=== PATIENT | female | born 1955 | race Two or more races ===

== ENCOUNTER 2024-10-08 15:46 | Inpatient (IN) | payer OTHER ==
[~2024-10-08] VITALS: Ht 167.6 cm; Wt 59.0 kg
--- NOTE | 2024-10-08 16:28 | NUR ---
PACIENTE ALERTA Y ORIENTADA X3 LA MISMA REFIERE QUE SE HISO UN ESTUDIO Y LA ENVIARON PARA ZOEY POR QUE SALIO CON EL INTESTINO PERFORADO SHARMA DR.JOSE JOSEPH. S/V ESTABLE AL MOMENTO.PACIENTE EN TRACIE CON BARANDAS ELEVADAS EN ESPERA DE EVALUACION MEDICA.
[2024-10-08] MEDS ORDERED: ELIQUIS2.5 MG (16:33)
[2024-10-08] MEDS ORDERED: TENORMIN25 MG (16:33)
[2024-10-08] MEDS ORDERED: HUMIRA40 MG/0.2 (16:33)
[2024-10-08] MEDS ORDERED: SYNTHROID100 MCG (16:33)
[2024-10-08] MEDS ORDERED: SIMVASTATIN5 MG (16:34)
[2024-10-08] MEDS ORDERED: 0.9 % SODIUM CHLORIDE 1,000 ML IV STA (17:37)
--- NOTE | 2024-10-08 17:37 | NUR ---
SE NOTIFICA CT PENDIENTE.
--- NOTE | 2024-10-08 18:21 | NUR ---
PTE EVELAUADA POR EL DR. LALA. SE OIENTA SOBRE TRATAMIENTO, VERBALIZA ENTENDER. SE COLECTAN MUESTRAS DE LAB SOREN ORDEN MEDICA BAJO MEDIDAS ASEPTICAS. PTE REHUSA CANALIZACION Y COLOCAR IVFLUID.
[2024-10-08 18:30] LABS: BASO % 0.6 % (0.1-1.2); EOS # 0.11 (0.04-0.54); EOS % 1.8 % (0.7-7.0); HEMATOCRIT 35.9 % (34.1-44.9); LYMPH # 1.96 (1.18-3.74); LYMPH % 31.7 % (19.3-53.1); MEAN CORPUSCULAR HEMOGLOBIN 32.3 pg (25.6-32.2); MONO # 0.67 (0.24-0.82); MONO % 10.8 % (4.7-12.5); NEUT # 3.38 (1.56-6.13); NEUT % 54.8 % (34.0-71.1); PLATELET COUNT 211 K/uL (163-369); RED BLOOD COUNT 3.71 M/uL (3.93-5.22); RED CELL DISTRIBUTION WIDTH 13.4 % (11.6-14.4)
[2024-10-08 18:38] LABS: INR 1.11; PARTIAL THROMBOPLASTIN TIME 34.7 SECONDS (22.0-34.0)
[2024-10-08 18:42] LABS: ALBUMIN 3.7 gm/dL (3.4-5.0); BILIRUBIN TOTAL 0.31 mg/dL (0.3-1.2); CALCIUM 9.4 mg/dL (8.5-10.1); CREATININE SERUM 0.97 mg/dL (0.55-1.02); GFR 56.77; POTASSIUM 4.1 mEq/L (3.5-5.1); TOTAL PROTEIN 7.7 gm/dL (6.4-8.2)
[2024-10-08] MEDS ORDERED: PIPERACILLIN/TAZOBACTAM SODIUM 3.375 GM in DEXTROSE 5 % IN WATER 100 ML IV SCH (19:07)
[2024-10-08] MEDS ORDERED: PANTOPRAZOLE SODIUM 40 MG/VIAL VIAL IV SCH (19:13)
[2024-10-08] MEDS ORDERED: 0.9 % SODIUM CHLORIDE 1,000 ML IV SCH (19:15)
[2024-10-08] MEDS ORDERED: ENALAPRILAT DIHYDRATE 1.25 MG/ML VIAL IV PRN (19:15)
[2024-10-08] MEDS ORDERED: MORPHINE SULFATE 2 MG/ML CARTRIDGE IV PRN (19:15)
[2024-10-08] MEDS ORDERED: ONDANSETRON HCL 4 MG in 0.9 % SODIUM CHLORIDE 50 ML IV PRN (19:15)
[2024-10-08] MEDS ORDERED: PIPERACILLIN/TAZOBACTAM SODIUM 3.375 GM VIAL IV ONE (19:48)
[2024-10-08 19:58] LABS: PH,URINE 6.5 (5.0-8.0); URINE APPEARANCE Clear; URINE BILIRRUBIN Negative (NEGATIVE); URINE BLOOD Trace; URINE COLOR Yellow; URINE GLUCOSE Negative (NEGATIVE); URINE KETONE Negative (NEGATIVE); URINE LEUKOCYTE Small; URINE NITRATE Negative; URINE PROTEIN Negative (NEGATIVE); URINE UROBILINOGEN 0.2 E.U./dl
[2024-10-08 20:02] LABS: URINE BACTERIA 7273.5 uL (0.0-1933); URINE RBC 13.1 uL (0.0-20.8); URINE WBC 16.5 uL (0.0-23.2)
[2024-10-08 20:04] LABS: URINE EPITHELIAL CELLS 0.9 uL (0.0-38.8)
[2024-10-08 22:34] VITALS: BP 104/62; O2SAT 96
[2024-10-08 22:40] VITALS: BP 104/62
[2024-10-09 05:04] VITALS: BP 100/57; O2SAT 98
[2024-10-09 08:54] VITALS: BP 107/67; O2SAT 100
[2024-10-09] MEDS ORDERED: PANTOPRAZOLE SODIUM 80 MG in 0.9 % SODIUM CHLORIDE 100 ML IV SCH (12:45)
[2024-10-09 16:00] VITALS: BP 101/60; O2SAT 100
[2024-10-09] MEDS ORDERED: VANCOMYCIN HCL 1,000 MG VIAL ONE (20:19)
[2024-10-09] MEDS ORDERED: VANCOMYCIN HCL 1,000 MG VIAL IV SCH (21:00)
[2024-10-10 01:07] VITALS: BP 94/48; O2SAT 98
[2024-10-10 07:22] LABS: BASO % 0.9 % (0.1-1.2); EOS # 0.12 (0.04-0.54); EOS % 2.2 % (0.7-7.0); HEMATOCRIT 33.5 % (34.1-44.9); LYMPH # 1.29 (1.18-3.74); MEAN CORPUSCULAR HEMOGLOBIN 32.7 pg (25.6-32.2); MONO # 0.62 (0.24-0.82); MONO % 11.5 % (4.7-12.5); NEUT # 3.28 (1.56-6.13); PLATELET COUNT 177 K/uL (163-369); RED BLOOD COUNT 3.36 M/uL (3.93-5.22); RED CELL DISTRIBUTION WIDTH 13.7 % (11.6-14.4)
[2024-10-10 08:00] VITALS: BP 99/60; O2SAT 96
[2024-10-10 08:21] LABS: ALBUMIN 2.8 gm/dL (3.4-5.0); BILIRUBIN TOTAL 0.74 mg/dL (0.3-1.2); CALCIUM 7.9 mg/dL (8.5-10.1); CREATININE SERUM 0.86 mg/dL (0.55-1.02); GFR 65.23; GLOBULINA 2.9 G/DL (2.4-3.5); MAGNESIUM 1.6 mg/dL (1.8-2.4); PHOSPHOROUS 3.8 mg/dL (2.5-4.9); POTASSIUM 3.74 mEq/L (3.5-5.1); TOTAL PROTEIN 5.7 gm/dL (6.4-8.2)
[2024-10-10 08:22] LABS: C-REACTIVE PROTEIN 0.64 MG/DL (0.00-0.29)
[2024-10-10] MEDS ORDERED: DIATRIZOATE MEGLUMINE, SODIUM 30 ML BOTTLE PO NR (09:00)
[2024-10-10] MEDS ORDERED: MAGNESIUM SULFATE IN WATER 50 ML IV NR (10:15)
[2024-10-10 16:50] VITALS: BP 103/64; O2SAT 95
[2024-10-11 02:00] VITALS: BP 99/59; O2SAT 99
[2024-10-11] MEDS ORDERED: DEXTROSE 50 % IN WATER 0.5 G/ML VIAL IV PRN (07:00)
[2024-10-11] MEDS ORDERED: DEXTROSE 5 % AND 0.9 % NACL 1,000 ML IV SCH (07:00)
[2024-10-11 08:00] VITALS: BP 118/60; O2SAT 100
[2024-10-11 08:21] LABS: BILIRUBIN TOTAL 0.75 mg/dL (0.3-1.2); BILIRUBIN,CONJUGATED 0.21 mg/dL (0.0-0.2); BILIRUBIN,UNCONJUGATED 0.54 mg/dL (0.0-0.6); CALCIUM 8.1 mg/dL (8.5-10.1); CREATININE SERUM 0.98 mg/dL (0.55-1.02); GFR 56.1; MAGNESIUM 1.8 mg/dL (1.8-2.4); POTASSIUM 4.06 mEq/L (3.5-5.1); TOTAL PROTEIN 6.1 gm/dL (6.4-8.2)
[2024-10-11 08:36] LABS: C-REACTIVE PROTEIN 1.31 MG/DL (0.00-0.29)
[2024-10-11] MEDS ORDERED: ENOXAPARIN SODIUM 40 MG/0.4 ML SYRINGE SUBCUTANEO SCH (09:00)
[2024-10-11] MEDS ORDERED: LEVOTHYROXINE SODIUM 100 MCG/VIAL VIAL IV SCH (12:00)
[2024-10-11] MEDS ORDERED: AMINO ACIDS 4.25 %/DEXTROSE 5% 1,000 ML PERIFERAL SCH (17:00)
[2024-10-11 17:10] VITALS: BP 102/62; O2SAT 98
[2024-10-11 17:40] LABS: CHOL HDL RATIO 2.7 (0-5.0)
[2024-10-12 01:48] VITALS: BP 108/62; O2SAT 97
[2024-10-12 08:00] VITALS: BP 122/72; O2SAT 99
[2024-10-12 16:00] VITALS: BP 117/67; O2SAT 99
[2024-10-13 01:35] VITALS: BP 100/54; O2SAT 98
[2024-10-13 07:11] LABS: BASO % 1.3 % (0.1-1.2); EOS # 0.27 (0.04-0.54); HEMATOCRIT 33.5 % (34.1-44.9); HEMOGLOBIN 11.2 g/dL (11.2-15.7); LYMPH # 1.64 (1.18-3.74); LYMPH % 36.4 % (19.3-53.1); MEAN CORPUSCULAR HEMOGLOBIN 32.6 pg (25.6-32.2); NEUT # 1.73 (1.56-6.13); NEUT % 38.4 % (34.0-71.1); PLATELET COUNT 173 K/uL (163-369); RED BLOOD COUNT 3.44 M/uL (3.93-5.22); RED CELL DISTRIBUTION WIDTH 13.6 % (11.6-14.4)
[2024-10-13 07:17] LABS: INR 1.15; PARTIAL THROMBOPLASTIN TIME 31.3 SECONDS (22.0-34.0); PROTHROMBIN TIME 12.4 SECONDS (9.0-11.5)
[2024-10-13 07:22] LABS: MONO % 17.7 % (4.7-12.5)
[2024-10-13 07:52] LABS: ALBUMIN 2.7 gm/dL (3.4-5.0); BILIRUBIN TOTAL 0.66 mg/dL (0.3-1.2); BILIRUBIN,CONJUGATED 0.18 mg/dL (0.0-0.2); BILIRUBIN,UNCONJUGATED 0.48 mg/dL (0.0-0.6); CHOL HDL RATIO 2.7 (0-5.0); CREATININE SERUM 0.84 mg/dL (0.55-1.02); GFR 67.03; GLOBULINA 2.8 G/DL (2.4-3.5); MAGNESIUM 1.5 mg/dL (1.8-2.4); POTASSIUM 3.97 mEq/L (3.5-5.1); TOTAL PROTEIN 5.5 gm/dL (6.4-8.2)
[2024-10-13 08:00] VITALS: BP 99/55; O2SAT 95
[2024-10-13 12:18] LABS: UREA CLEARANCE 26.4 ML/MIN
[2024-10-13] MEDS ORDERED: PANTOPRAZOLE SODIUM 40 MG TABLET.DR PO SCH (21:00)
[2024-10-13] MEDS ORDERED: VANCOMYCIN HCL 1,000 MG VIAL ONE (21:15)
[2024-10-14 00:05] VITALS: BP 109/68; O2SAT 99
[2024-10-14] MEDS ORDERED: LEVOTHYROXINE SODIUM 100 MCG TABLET PO SCH (06:00)
[2024-10-14 08:00] VITALS: BP 112/60; O2SAT 95
[2024-10-14] MEDS ORDERED: MAGNESIUM SULFATE IN WATER 50 ML IV NR (11:00)
[2024-10-14 16:00] VITALS: BP 123/68; O2SAT 100
[2024-10-15 01:01] VITALS: BP 120/79; O2SAT 100
[2024-10-15 07:36] LABS: BASO % 1.4 % (0.1-1.2); EOS # 0.32 (0.04-0.54); EOS % 7.5 % (0.7-7.0); HEMATOCRIT 32.8 % (34.1-44.9); HEMOGLOBIN 10.8 g/dL (11.2-15.7); LYMPH # 1.82 (1.18-3.74); LYMPH % 42.9 % (19.3-53.1); MEAN CORPUSCULAR HEMOGLOBIN 31.7 pg (25.6-32.2); MONO # 0.62 (0.24-0.82); NEUT # 1.42 (1.56-6.13); NEUT % 33.6 % (34.0-71.1); PLATELET COUNT 175 K/uL (163-369); RED BLOOD COUNT 3.41 M/uL (3.93-5.22); RED CELL DISTRIBUTION WIDTH 13.6 % (11.6-14.4)
[2024-10-15 07:46] LABS: MONO % 14.6 % (4.7-12.5)
[2024-10-15 08:11] LABS: ALBUMIN 2.8 gm/dL (3.4-5.0); BILIRUBIN TOTAL 0.52 mg/dL (0.3-1.2); CALCIUM 8.3 mg/dL (8.5-10.1); CREATININE SERUM 0.86 mg/dL (0.55-1.02); GFR 65.23; GLOBULINA 2.9 G/DL (2.4-3.5); MAGNESIUM 1.6 mg/dL (1.8-2.4); PHOSPHOROUS 2.6 mg/dL (2.5-4.9); POTASSIUM 3.42 mEq/L (3.5-5.1); TOTAL PROTEIN 5.7 gm/dL (6.4-8.2)
[2024-10-15 08:46] VITALS: BP 120/66; O2SAT 100
[2024-10-15] MEDS ORDERED: PANTOPRAZOLE SODIUM 40 MG/VIAL VIAL IV SCH (09:00)
[2024-10-15] MEDS ORDERED: DIATRIZOATE MEGLUMINE, SODIUM 30 ML BOTTLE PO NR (11:00)
[2024-10-15 16:00] VITALS: BP 106/62; O2SAT 100
[2024-10-15] MEDS ORDERED: MAGNESIUM SULFATE 2,000 MG in 0.9 % SODIUM CHLORIDE 100 ML IV ONE (23:15)
[2024-10-15] MEDS ORDERED: POTASSIUM CHLORIDE 20MEQ/100ML H2O PB IV ONE (23:15)
[2024-10-16 01:11] VITALS: BP 113/64; O2SAT 100
[2024-10-16 08:00] VITALS: BP 108/76; O2SAT 100
[2024-10-16 09:54] LABS: BASO % 1.4 % (0.1-1.2); EOS # 0.37 (0.04-0.54); EOS % 8.8 % (0.7-7.0); HEMATOCRIT 32.7 % (34.1-44.9); HEMOGLOBIN 10.7 g/dL (11.2-15.7); LYMPH # 1.47 (1.18-3.74); LYMPH % 35.1 % (19.3-53.1); MEAN CORPUSCULAR HEMOGLOBIN 32.4 pg (25.6-32.2); MONO # 0.52 (0.24-0.82); NEUT # 1.76 (1.56-6.13); NEUT % 42.1 % (34.0-71.1); PLATELET COUNT 177 K/uL (163-369); RED CELL DISTRIBUTION WIDTH 13.8 % (11.6-14.4)
[2024-10-16 10:04] LABS: MONO % 12.4 % (4.7-12.5)
[2024-10-16 10:27] LABS: ALBUMIN 2.8 gm/dL (3.4-5.0); BILIRUBIN TOTAL 0.5 mg/dL (0.3-1.2); CALCIUM 8.7 mg/dL (8.5-10.1); CREATININE SERUM 0.78 mg/dL (0.55-1.02); GFR 73.01; GLOBULINA 3.2 G/DL (2.4-3.5); MAGNESIUM 1.6 mg/dL (1.8-2.4); POTASSIUM 3.8 mEq/L (3.5-5.1)
[2024-10-16 16:00] VITALS: BP 121/61; O2SAT 99
[2024-10-16] MEDS ORDERED: MAGNESIUM SULFATE IN WATER 50 ML IV NR (17:30)
[2024-10-17] VITALS: BP 105/61; O2SAT 100
[2024-10-17 08:00] VITALS: BP 109/60; O2SAT 97
[2024-10-17 08:41] LABS: BASO % 1.4 % (0.1-1.2); EOS # 0.29 (0.04-0.54); EOS % 5.6 % (0.7-7.0); HEMOGLOBIN 10.8 g/dL (11.2-15.7); LYMPH # 1.97 (1.18-3.74); MEAN CORPUSCULAR HEMOGLOBIN 32.3 pg (25.6-32.2); MONO # 0.67 (0.24-0.82); NEUT # 2.17 (1.56-6.13); NEUT % 41.9 % (34.0-71.1); PLATELET COUNT 181 K/uL (163-369); RED BLOOD COUNT 3.34 M/uL (3.93-5.22); RED CELL DISTRIBUTION WIDTH 13.8 % (11.6-14.4)
[2024-10-17 09:05] LABS: MONO % 12.9 % (4.7-12.5)
[2024-10-17 09:24] LABS: ERYTHROCYTE SEDIMENTATION RATE 19 mm/hr (0-30)
[2024-10-17 09:28] LABS: ALKALINE PHOSPHATASE 83 U/L (50-136); ALT/SGPT 20 U/L (12-78); ANION GAP 7 (10.0-20.0); AST/SGOT 25 U/L (15-37); BILIRUBIN TOTAL 0.61 mg/dL (0.3-1.2); BLOOD UREA NITROGEN 13 mg/dL (7-18); BUN CREA RATIO 15 (7.0-25.0); CALCIUM 8.6 mg/dL (8.5-10.1); CARBON DIOXIDE 29 mEq/L (21-32); CHLORIDE 109 mmol/L (98-107); CREATININE SERUM 0.85 mg/dL (0.55-1.02); GFR 66.12; GLOBULINA 3.1 G/DL (2.4-3.5); GLUCOSE FASTING 76 mg/dL (65-100); LDH 142 U/L (84-246); OSMOLALITY SERUM 282 MOSM/KG (275-295); POTASSIUM 3.48 mEq/L (3.5-5.1); SODIUM 142 mmol/L (136-145); TOTAL PROTEIN 6.1 gm/dL (6.4-8.2)
[2024-10-17 09:30] LABS: C-REACTIVE PROTEIN < 0.29 MG/DL (0.00-0.29)
[2024-10-17 16:22] VITALS: BP 109/59; O2SAT 98
[2024-10-18 00:32] VITALS: BP 98/53; O2SAT 100
[2024-10-18 08:16] VITALS: BP 104/61; O2SAT 100
[2024-10-18] MEDS ORDERED: PANTOPRAZOLE SODIUM 40 MG TABLET.DR PO SCH (12:28)
[2024-10-18] MEDS ORDERED: LACTOBACILLUS ACIDOPHILUS 1 CAP CAP PO NR (14:00)
[2024-10-18 15:00] VITALS: BP 126/84; O2SAT 100
[2024-10-18] MEDS ORDERED: LACTOBACILLUS ACIDOPHILUS 1 CAP CAP PO SCH (17:00)
[2024-10-19 00:19] VITALS: BP 101/61; O2SAT 99
[2024-10-19 07:51] VITALS: BP 121/66; O2SAT 100
[2024-10-19 08:22] LABS: BILIRUBIN TOTAL 0.59 mg/dL (0.3-1.2); CALCIUM 8.4 mg/dL (8.5-10.1); CREATININE SERUM 1.03 mg/dL (0.55-1.02); GFR 52.97; GLOBULINA 3.3 G/DL (2.4-3.5); MAGNESIUM 1.7 mg/dL (1.8-2.4); POTASSIUM 3.79 mEq/L (3.5-5.1); TOTAL PROTEIN 6.3 gm/dL (6.4-8.2)
[2024-10-19 08:43] LABS: BASO % 1.6 % (0.1-1.2); EOS # 0.29 (0.04-0.54); EOS % 5.2 % (0.7-7.0); HEMATOCRIT 34.1 % (34.1-44.9); LYMPH # 2.67 (1.18-3.74); LYMPH % 47.4 % (19.3-53.1); MEAN CORPUSCULAR HEMOGLOBIN 31.5 pg (25.6-32.2); MONO # 0.75 (0.24-0.82); NEUT # 1.82 (1.56-6.13); NEUT % 32.3 % (34.0-71.1); PLATELET COUNT 205 K/uL (163-369); RED BLOOD COUNT 3.49 M/uL (3.93-5.22); RED CELL DISTRIBUTION WIDTH 14.1 % (11.6-14.4)
[2024-10-19 08:44] LABS: MONO % 13.3 % (4.7-12.5)
[2024-10-19 15:30] VITALS: BP 97/60; O2SAT 100
[2024-10-20 00:44] VITALS: BP 119/70; O2SAT 100
[2024-10-20] MEDS ORDERED: INTESTINEX680 M1 PO (07:57)
[2024-10-20] MEDS ORDERED: AMOX-CLAV 875-1 EACH PO (07:57)
[2024-10-20] MEDS ORDERED: NEXIUM40 M1 PO (07:58)
[2024-10-20 08:49] VITALS: BP 124/74; O2SAT 100
== END 2024-10-20 11:38 | disposition home or self-care (01) | DRG 393 ==
LOC: ER 16:05 → SURH 19:40
PROVIDERS: Internal Medicine; Internal Medicine Infectious Disease; ADMIT Internal Medicine; ATTEND Internal Medicine
PROC: 0D9670Z Drainage of Stomach with Drainage Device, Via Natural or Artificial Opening (ICD-10-PCS; principal; 2024-10-08)
PROC: BW21ZZZ Computerized Tomography (CT Scan) of Abdomen and Pelvis (ICD-10-PCS; 2024-10-08)
PROC: BW21YZZ Computerized Tomography (CT Scan) of Abdomen and Pelvis using Other Contrast (ICD-10-PCS; 2024-10-10)
PROC: BW21YZZ Computerized Tomography (CT Scan) of Abdomen and Pelvis using Other Contrast (ICD-10-PCS; 2024-10-15)
PROC: BW21ZZZ Computerized Tomography (CT Scan) of Abdomen and Pelvis (ICD-10-PCS; 2024-10-15)
PROC: B54DZZZ Ultrasonography of Bilateral Lower Extremity Veins (ICD-10-PCS; 2024-10-17)
DX: K40.30 Unilateral inguinal hernia, with obstruction, without gangrene, not specified as recurrent (principal); K63.1 Perforation of intestine (nontraumatic); K50.90 Crohn's disease, unspecified, without complications; K66.8 Other specified disorders of peritoneum; E16.2 Hypoglycemia, unspecified; K59.00 Constipation, unspecified; I83.812 Varicose veins of left lower extremity with pain; I10 Essential (primary) hypertension; E78.5 Hyperlipidemia, unspecified